=== PATIENT | male | born 1955 | race Hispanic/Latino ===

== ENCOUNTER 2019-08-21 15:52 | Emergency (ER) | payer MEDICAID, OTHER ==
[2019-08-21] MEDS ORDERED: LORAZEPAM 1 MG TABLET ONE (16:19)
== END 2019-08-21 17:30 | disposition home or self-care (01) ==
LOC: EDH 15:52
DX: F41.9 Anxiety disorder, unspecified (principal); F20.9 Schizophrenia, unspecified; F31.9 Bipolar disorder, unspecified; Z72.0 Tobacco use
CPT/HCPCS: 71045; 93005

== ENCOUNTER 2020-07-20 12:14 | Emergency (ER) | payer MEDICARE ==
[2020-07-20] MEDS ORDERED: DEXAMETHASONE SOD PHOSPHATE 4 MG/ML 1ML VIAL ONE (13:33)
[2020-07-20] MEDS ORDERED: KETOROLAC TROMETHAMINE 15MG/ML ONE (13:33)
[2020-07-20] MEDS ORDERED: LIDOCAINE 5% TOPICAL PATCH TP ONE (13:34)
== END 2020-07-20 14:21 | disposition home or self-care (01) ==
LOC: EDH 12:14
DX: M54.30 Sciatica, unspecified side (principal); F20.9 Schizophrenia, unspecified; F31.9 Bipolar disorder, unspecified; F41.9 Anxiety disorder, unspecified; Z90.49 Acquired absence of other specified parts of digestive tract; Z72.0 Tobacco use
CPT/HCPCS: 96372 ×2; 99284; J1100; J1885

== ENCOUNTER 2021-01-16 16:56 | Emergency (ER) | payer MEDICARE ==
[2021-01-16] MEDS ORDERED: SODIUM CHLORIDE 0.9% 1000ML 1,000 ML IV ONE (17:37)
[2021-01-16] MEDS ORDERED: ALPRAZOLAM 0.25 MG TABLET ONE (17:37)
[2021-01-16 17:55] LABS: BASOPHILS % (AUTO) 0.5 % (0.0-5.0); EOSINOPHILS % (AUTO) 2.4 % (0.0-8.0); HEMATOCRIT 40.9 % (42-54); LYMPHOCYTES % (AUTO) 18.3 % (21.0-51.0); MEAN CORPUSCULAR HEMOGLOBIN 29.6 pg (27.0-33.0); MEAN CORPUSCULAR HGB CONC 34.5 g/dL (32.0-36.0); MEAN CORPUSCULAR VOLUME 85.7 fL (79-99); MONOCYTES % (AUTO) 6.6 % (3.0-13.0); NEUTROPHILS % (AUTO) 71.9 % (40.0-77.0); PLATELET COUNT (AUTO) 197 K/uL (130-400); RED BLOOD CELL COUNT(AUTO) 4.77 MIL/uL (4.50-6.20); RED CELL DISTRIBUTION WIDTH 13.3 % (11.0-15.5); WHITE BLOOD COUNT (AUTO) 9.2 K/uL (4.8-10.8)
[2021-01-16 17:56] LABS: APPEARANCE,URINE Clear (CLEAR); BILIRUBIN,URINE Negative (NEGATIVE); COLOR,URINE Yellow (YELLOW); GLUCOSE, URINE (UA) Negative (NEGATIVE); KETONES,URINE Negative (NEGATIVE); LEUKOCYTE ESTERASE ,URINE Negative (NEGATIVE); NITRATE,URINE Negative (NEGATIVE); OCCULT BLOOD,URINE Negative (NEGATIVE); PH,URINE 8.5 (5.0-8.0); PROTEIN,URINE Negative (NEGATIVE); UROBILINOGEN,URINE 0.2 mg/dL (0.2-1.0)
[2021-01-16 18:02] LABS: CREATININE 0.8 mg/dL (0.5-1.5); POTASSIUM 3.6 mmol/L (3.5-5.1)
[2021-01-16 18:07] LABS: ALBUMIN 4.1 g/dL (3.5-5.0); BILIRUBIN,TOTAL 0.8 mg/dL (0.2-1.0); TOTAL PROTEIN, SERUM 7.5 g/dL (6.0-8.3)
== END 2021-01-16 20:00 | disposition home or self-care (01) ==
LOC: EDH 16:56
DX: F41.1 Generalized anxiety disorder (principal); G47.00 Insomnia, unspecified; F32.9 Major depressive disorder, single episode, unspecified; E86.0 Dehydration; F20.9 Schizophrenia, unspecified; Z90.49 Acquired absence of other specified parts of digestive tract
CPT/HCPCS: 36415; 80053; 81003; 85025; 96360; 96361; 99283; J7030

== ENCOUNTER 2021-01-22 12:39 | Emergency (ER) | payer MEDICARE ==
[2021-01-22 13:30] LABS: APPEARANCE,URINE CLEAR (CLEAR); BILIRUBIN,URINE NEGATIVE (NEGATIVE); COLOR,URINE YELLOW (YELLOW); GLUCOSE, URINE (UA) NEGATIVE (NEGATIVE); KETONES,URINE NEGATIVE (NEGATIVE); LEUKOCYTE ESTERASE ,URINE NEGATIVE (NEGATIVE); NITRATE,URINE NEGATIVE (NEGATIVE); OCCULT BLOOD,URINE NEGATIVE (NEGATIVE); PROTEIN,URINE NEGATIVE (NEGATIVE); UROBILINOGEN,URINE 0.2 mg/dL (0.2-1.0)
[2021-01-22 14:06] LABS: BASOPHILS % (AUTO) 0.5 % (0.0-5.0); EOSINOPHILS % (AUTO) 1.2 % (0.0-8.0); HEMATOCRIT 40.4 % (42-54); LYMPHOCYTES % (AUTO) 11.5 % (21.0-51.0); MEAN CORPUSCULAR HGB CONC 33.4 g/dL (32.0-36.0); MEAN CORPUSCULAR VOLUME 86.7 fL (79-99); MONOCYTES % (AUTO) 5.3 % (3.0-13.0); NEUTROPHILS % (AUTO) 81.2 % (40.0-77.0); PLATELET COUNT (AUTO) 277 K/uL (130-400); RED BLOOD CELL COUNT(AUTO) 4.66 MIL/uL (4.50-6.20); RED CELL DISTRIBUTION WIDTH 13.4 % (11.0-15.5); WHITE BLOOD COUNT (AUTO) 13.1 K/uL (4.8-10.8)
[2021-01-22 14:29] LABS: ALBUMIN 3.9 g/dL (3.5-5.0); BILIRUBIN,TOTAL 0.5 mg/dL (0.2-1.0); CREATININE 0.7 mg/dL (0.5-1.5); TOTAL PROTEIN, SERUM 7.2 g/dL (6.0-8.3)
[2021-01-22] MEDS ORDERED: ACETAMINOPHEN EXTRA STRENGTH 500 MG TABLET ONE (17:04)
== END 2021-01-22 18:26 | disposition home or self-care (01) ==
LOC: EDH 12:39
DX: G44.319 Acute post-traumatic headache, not intractable (principal); M25.552 Pain in left hip; F41.9 Anxiety disorder, unspecified; F32.9 Major depressive disorder, single episode, unspecified; F20.9 Schizophrenia, unspecified; Z90.49 Acquired absence of other specified parts of digestive tract; Z88.8 Allergy status to other drugs, medicaments and biological substances; Z98.890 Other specified postprocedural states; W18.39XA Other fall on same level, initial encounter; Y93.89 Activity, other specified; Y92.89 Other specified places as the place of occurrence of the external cause; Y99.8 Other external cause status
CPT/HCPCS: 36415; 70450; 72170; 80053; 81003; 84484; 85025; 93005

== ENCOUNTER 2021-02-21 21:46 | Emergency (ER) | payer MEDICARE ==
[~2021-02-21] VITALS: Ht 172.7 cm; Wt 89.8 kg
[2021-02-21 22:07] VITALS: BP 120/71
[2021-02-21 22:22] LABS: BASOPHILS % (AUTO) 0.7 % (0.0-5.0); EOSINOPHILS % (AUTO) 3.8 % (0.0-8.0); HEMATOCRIT 37.4 % (42-54); LYMPHOCYTES % (AUTO) 11.8 % (21.0-51.0); MEAN CORPUSCULAR HEMOGLOBIN 29.1 pg (27.0-33.0); MEAN CORPUSCULAR HGB CONC 32.6 g/dL (32.0-36.0); MEAN CORPUSCULAR VOLUME 89.3 fL (79-99); MONOCYTES % (AUTO) 8.1 % (3.0-13.0); PLATELET COUNT (AUTO) 215 K/uL (130-400); RED BLOOD CELL COUNT(AUTO) 4.19 MIL/uL (4.50-6.20); RED CELL DISTRIBUTION WIDTH 13.1 % (11.0-15.5); WHITE BLOOD COUNT (AUTO) 10.8 K/uL (4.8-10.8)
[2021-02-21 22:32] LABS: INR 1.02 (0.85-1.15); PROTHROMBIN TIME 11.1 SEC (9.6-11.6)
[2021-02-21 22:33] LABS: CARBON DIOXIDE 25 mmol/L (21-32); CHLORIDE 103 mmol/L (101-111); CREATININE 0.6 mg/dL (0.5-1.5); GLOMERULAR FILTR. RATE CALC 143 mL/min (>60); GLUCOSE,RANDOM 138 mg/dL (70-105); PARTIAL THROMBOPLASTIN TIME 26.5 SEC (26.3-35.5); POTASSIUM 4.5 mmol/L (3.5-5.1); SODIUM SERUM 138 mmol/L (136-145); UREA NITROGEN, BLOOD 21 mg/dL (7-18)
[2021-02-21 22:37] LABS: ALANINE AMINOTRANSFERASE 25 U/L (12-78); ALBUMIN 3.2 g/dL (3.5-5.0); ASPARTATE AMINOTRANSFERASE 24 U/L (10-37); BILIRUBIN,TOTAL 0.3 mg/dL (0.2-1.0); TOTAL PROTEIN, SERUM 5.9 g/dL (6.0-8.3)
[2021-02-21 22:39] LABS: CRP QUANTITATIVE < 2.00 mg/L (0.00-9.0)
[2021-02-22] MEDS ORDERED: CEFTRIAXONE 1G VIAL IVP ONE (00:15)
[2021-02-22 00:51] LABS: APPEARANCE,URINE Clear (CLEAR); BILIRUBIN,URINE Negative (NEGATIVE); COLOR,URINE Yellow (YELLOW); GLUCOSE, URINE (UA) Negative (NEGATIVE); KETONES,URINE Trace mg/dL (NEGATIVE); LEUKOCYTE ESTERASE ,URINE Negative (NEGATIVE); NITRATE,URINE Negative (NEGATIVE); OCCULT BLOOD,URINE Negative (NEGATIVE); PROTEIN,URINE Negative (NEGATIVE)
[2021-02-22] MEDS ORDERED: MORPHINE 4 MG SYG IV ONE (01:30)
[2021-02-22 01:48] VITALS: BP 116/66
[2021-02-22 03:18] LABS: HEMATOCRIT 39.3 % (42-54); MEAN CORPUSCULAR HEMOGLOBIN 29.9 pg (27.0-33.0); MEAN CORPUSCULAR HGB CONC 32.8 g/dL (32.0-36.0); MEAN CORPUSCULAR VOLUME 91.2 fL (79-99); RED BLOOD CELL COUNT(AUTO) 4.31 MIL/uL (4.50-6.20); RED CELL DISTRIBUTION WIDTH 13.2 % (11.0-15.5); WHITE BLOOD COUNT (AUTO) 10.2 K/uL (4.8-10.8)
[2021-02-22 03:26] VITALS: BP 104/67
[2021-02-22] MEDS ORDERED: CEPH500B PO (04:33)
[2021-02-22 04:48] VITALS: BP 121/87
== END 2021-02-22 04:58 | disposition home or self-care (01) ==
LOC: EDH 21:46
DX: S20.462A Insect bite (nonvenomous) of left back wall of thorax, initial encounter (principal); R07.89 Other chest pain; R05 Cough; Z88.8 Allergy status to other drugs, medicaments and biological substances; Z72.0 Tobacco use; W57.XXXA Bitten or stung by nonvenomous insect and other nonvenomous arthropods, initial encounter; Y93.89 Activity, other specified; Y92.89 Other specified places as the place of occurrence of the external cause; Y99.8 Other external cause status
CPT/HCPCS: 36415 ×2; 71045; 80053; 81003; 82550; 83605; 83735; 84484; 85025; 85027; 85610; 85730; 86140; 96374; 96375; 99284; J0696; J2270

== ENCOUNTER 2021-12-09 15:11 | Emergency (ER) | payer OTHER, MEDICARE ==
[~2021-12-09 15:11] MED LIST: CEPH500B PO
[2021-12-09 15:34] LABS: BASOPHILS % (AUTO) 0.6 % (0.0-5.0); EOSINOPHILS % (AUTO) 1.8 % (0.0-8.0); HEMATOCRIT 40.2 % (42-54); LYMPHOCYTES % (AUTO) 13.1 % (21.0-51.0); MEAN CORPUSCULAR HEMOGLOBIN 27.1 pg (27.0-33.0); MEAN CORPUSCULAR HGB CONC 32.8 g/dL (32.0-36.0); MEAN CORPUSCULAR VOLUME 82.5 fL (79-99); MONOCYTES % (AUTO) 5.4 % (3.0-13.0); NEUTROPHILS % (AUTO) 78.8 % (40.0-77.0); PLATELET COUNT (AUTO) 216 K/uL (130-400); RED BLOOD CELL COUNT(AUTO) 4.87 MIL/uL (4.50-6.20); RED CELL DISTRIBUTION WIDTH 14.4 % (11.0-15.5); WHITE BLOOD COUNT (AUTO) 9.3 K/uL (4.8-10.8)
[2021-12-09 15:46] LABS: CREATININE 0.6 mg/dL (0.5-1.5)
[2021-12-09 15:50] LABS: ALBUMIN 3.9 g/dL (3.5-5.0); BILIRUBIN,TOTAL 0.4 mg/dL (0.2-1.0)
[2021-12-09 16:10] LABS: BILIRUBIN,URINE Negative (NEGATIVE); COLOR,URINE Yellow (YELLOW); GLUCOSE, URINE (UA) Negative (NEGATIVE); KETONES,URINE Negative (NEGATIVE); LEUKOCYTE ESTERASE ,URINE Trace (NEGATIVE); NITRATE,URINE Negative (NEGATIVE); OCCULT BLOOD,URINE Negative (NEGATIVE); PH,URINE 6.5 (5.0-8.0); PROTEIN,URINE Negative (NEGATIVE); UROBILINOGEN,URINE 0.2 mg/dL (0.2-1.0)
[2021-12-09 16:14] LABS: APPEARANCE,URINE CLOUDY (CLEAR)
[2021-12-09 16:42] VITALS: BP 105/63
[2021-12-09 17:24] LABS: BACTERIA,URINE Few /HPF (None Seen); RBC,URINE 0-1 /HPF (0-1); SQUAMOUS EPITHELIAL CELL,UR Few /HPF (0-2); WBC,URINE 0-1 /HPF (0-1)
[2021-12-09] MEDS ORDERED: ONDANSETRON ODT 4MG TAB SL ONE (18:00)
[2021-12-09] MEDS ORDERED: CEFTRIAXONE 1G VIAL IM ONE (18:00)
[2021-12-09] MEDS ORDERED: ONDA4TAB10 PO (18:05)
[2021-12-09] MEDS ORDERED: CEPH500B PO (18:05)
== END 2021-12-09 18:25 | disposition home or self-care (01) ==
LOC: EDH 15:11
DX: N39.0 Urinary tract infection, site not specified (principal); K59.00 Constipation, unspecified; E11.9 Type 2 diabetes mellitus without complications; E78.00 Pure hypercholesterolemia, unspecified; I10 Essential (primary) hypertension; Z88.8 Allergy status to other drugs, medicaments and biological substances; Z98.890 Other specified postprocedural states
CPT/HCPCS: 36415; 80053; 81001; 85025; 87486; 87797; 96372; 99283; J0696

== ENCOUNTER 2021-12-14 18:29 | Emergency (ER) | payer OTHER, MEDICARE ==
[~2021-12-14] VITALS: Ht 172.7 cm; Wt 78.0 kg
[~2021-12-14 18:29] MED LIST changes: +ONDA4TAB10 PO
[2021-12-14 18:55] LABS: APPEARANCE,URINE Clear (CLEAR); BILIRUBIN,URINE Negative (NEGATIVE); COLOR,URINE Yellow (YELLOW); GLUCOSE, URINE (UA) Negative (NEGATIVE); KETONES,URINE Negative (NEGATIVE); LEUKOCYTE ESTERASE ,URINE Negative (NEGATIVE); NITRATE,URINE Negative (NEGATIVE); OCCULT BLOOD,URINE Negative (NEGATIVE); PH,URINE 8.5 (5.0-8.0); PROTEIN,URINE Negative (NEGATIVE); UROBILINOGEN,URINE 0.2 mg/dL (0.2-1.0)
[2021-12-14] MEDS ORDERED: PHEN-847 PO (19:03)
[2021-12-14 19:06] VITALS: BP 130/65
[2021-12-14] MEDS ORDERED: PHENAZOPYRIDINE HCL 200 MG TABLET PO ONE (19:30)
== END 2021-12-14 19:12 | disposition home or self-care (01) ==
LOC: EDH 18:29
DX: R30.0 Dysuria (principal); R35.0 Frequency of micturition; Z88.8 Allergy status to other drugs, medicaments and biological substances; Z90.49 Acquired absence of other specified parts of digestive tract; Z79.899 Other long term (current) drug therapy
CPT/HCPCS: 81003

== ENCOUNTER 2021-12-14 19:52 | Emergency (ER) | payer OTHER, MEDICARE ==
[~2021-12-14] VITALS: Ht 172.7 cm; Wt 78.0 kg
[~2021-12-14 19:52] MED LIST changes: +PHEN-847 PO
[2021-12-14 19:54] VITALS: BP 115/72
== END 2021-12-14 21:22 | disposition home or self-care (01) ==
LOC: EDH 19:52
DX: N48.89 Other specified disorders of penis (principal); Z53.21 Procedure and treatment not carried out due to patient leaving prior to being seen by health care provider

== ENCOUNTER 2022-01-20 17:26 | Inpatient (IN) | payer OTHER, MEDICARE ==
[~2022-01-20] VITALS: Ht 172.7 cm; Wt 74.8 kg
[2022-01-20 18:15] LABS: HEMATOCRIT 40.4 % (42-54); MEAN CORPUSCULAR HEMOGLOBIN 28.8 pg (27.0-33.0); MEAN CORPUSCULAR HGB CONC 34.2 g/dL (32.0-36.0); MEAN CORPUSCULAR VOLUME 84.2 fL (79-99); PLATELET COUNT (AUTO) 216 K/uL (130-400); RED CELL DISTRIBUTION WIDTH 14.9 % (11.0-15.5); WHITE BLOOD COUNT (AUTO) 18.6 K/uL (4.8-10.8)
[2022-01-20 18:17] LABS: BASOPHILS % (AUTO) 0.2 % (0.0-5.0); EOSINOPHILS % (AUTO) 0.1 % (0.0-8.0); LYMPHOCYTES % (AUTO) 6.7 % (21.0-51.0); MONOCYTES % (AUTO) 7.2 % (3.0-13.0); NEUTROPHILS % (AUTO) 84.9 % (40.0-77.0)
[2022-01-20 18:35] LABS: ALBUMIN 4.1 g/dL (3.5-5.0); BILIRUBIN,TOTAL 1.4 mg/dL (0.2-1.0); CREATININE 0.8 mg/dL (0.5-1.5); POTASSIUM 4.5 mmol/L (3.5-5.1); TOTAL PROTEIN, SERUM 7.4 g/dL (6.0-8.3)
[2022-01-20 19:14] LABS: APPEARANCE,URINE CLEAR (CLEAR); BILIRUBIN,URINE SMALL (NEGATIVE); COLOR,URINE YELLOW (YELLOW); GLUCOSE, URINE (UA) NEGATIVE (NEGATIVE); KETONES,URINE 15 mg/dL (NEGATIVE); LEUKOCYTE ESTERASE ,URINE NEGATIVE (NEGATIVE); NITRATE,URINE POSITIVE (NEGATIVE); OCCULT BLOOD,URINE TRACE-INTACT (NEGATIVE); PH,URINE 6.5 (5.0-8.0); PROTEIN,URINE TRACE mg/dL (NEGATIVE)
[2022-01-20 19:33] LABS: BACTERIA,URINE Few /HPF (None Seen); RBC,URINE 0-1 /HPF (0-1); SQUAMOUS EPITHELIAL CELL,UR None Seen /HPF (0-2); WBC,URINE 0-1 /HPF (0-1)
[2022-01-20] MEDS ORDERED: IOHEXOL-350 75 ML VIAL IV ONE (20:06)
[2022-01-20] MEDS ORDERED: 0.9%NACL 1000ML 1,000 ML IV ONE (20:30)
[2022-01-20] MEDS ORDERED: DEXAMETHASONE SOD PHOSPHATE 4 MG/ML 1ML VIAL IV ONE (21:30)
[2022-01-20] MEDS ORDERED: ONDANSETRON 4MG INJ IV PRN (22:00)
[2022-01-20] MEDS ORDERED: ACETAMINOPHEN 650 MG SUPPOSITORY RC PRN (22:00)
[2022-01-20] MEDS ORDERED: MORPHINE 4 MG SYG IV PRN (22:00)
[2022-01-20] MEDS: DEXAMETHASONE SOD PHOSPHATE 4 MG/ML 1ML VIAL IVP SCH (22:00)
[2022-01-20] MEDS: RACEPINEPHRINE HCL 2.25% 0.5 ML NEB SOLN NEB SCH (22:15)
[2022-01-20] MEDS: 0.9%NACL 1000ML 1,000 ML IV SCH (22:31)
[2022-01-20] MEDS: ZOSYN 3.375GM +NS 50ML IV SCH (22:31)
[2022-01-20 23:42] VITALS: BP 114/67
[2022-01-21 03:10] VITALS: BP 99/45
[2022-01-21 03:31] LABS: BASOPHILS % (AUTO) 0.2 % (0.0-5.0); HEMATOCRIT 41.3 % (42-54); LYMPHOCYTES % (AUTO) 3.6 % (21.0-51.0); MEAN CORPUSCULAR HEMOGLOBIN 27.8 pg (27.0-33.0); MEAN CORPUSCULAR VOLUME 86.9 fL (79-99); MONOCYTES % (AUTO) 1.8 % (3.0-13.0); NEUTROPHILS % (AUTO) 93.4 % (40.0-77.0); PLATELET COUNT (AUTO) 203 K/uL (130-400); RED BLOOD CELL COUNT(AUTO) 4.75 MIL/uL (4.50-6.20); RED CELL DISTRIBUTION WIDTH 15.2 % (11.0-15.5)
[2022-01-21 03:46] LABS: INR 0.94 (0.85-1.15); PROTHROMBIN TIME 10.3 SEC (9.6-11.6)
[2022-01-21 03:47] LABS: PARTIAL THROMBOPLASTIN TIME 30.2 SEC (26.3-35.5)
[2022-01-21 03:52] LABS: CREATININE 0.6 mg/dL (0.5-1.5); PHOSPHORUS 4.1 mg/dL (2.5-4.9)
[2022-01-21] MEDS: ZOSYN 3.375GM+NS 50ML 50 ML IV SCH ×3 (05:50→20:25)
[2022-01-21] MEDS: RACEPINEPHRINE HCL 2.25% 0.5 ML NEB SOLN NEB SCH ×3 (06:34→22:10)
[2022-01-21 08:02] VITALS: BP 104/53
[2022-01-21] MEDS: FAMOTIDINE 20MG VIAL IV SCH (08:20)
[2022-01-21] MEDS: DEXAMETHASONE SOD PHOSPHATE 4 MG/ML 1ML VIAL IVP SCH ×2 (08:21→20:26)
[2022-01-21] MEDS: MORPHINE 2 MG SYG IV PRN (10:51)
[2022-01-21 11:45] VITALS: BP 121/68
[2022-01-21 15:06] LABS: ALBUMIN 3.6 g/dL (3.5-5.0); BILIRUBIN,DIRECT 0.2 mg/dL (0.0-0.3); BILIRUBIN,TOTAL 0.7 mg/dL (0.2-1.0); TOTAL PROTEIN, SERUM 6.7 g/dL (6.0-8.3)
[2022-01-21 16:01] VITALS: BP 110/58
[2022-01-21] MEDS: 0.9%NACL 1000ML 1,000 ML IV SCH (18:00)
[2022-01-21 19:14] VITALS: BP 137/70
[2022-01-21] MEDS: ZOSYN 3.375GM +NS 50ML IV SCH (20:09)
[2022-01-21 23:06] VITALS: BP 119/70
[2022-01-22 00:33] LABS: HEPATITIS B SURFACE ANTIGEN Non-Reactive (Negative)
[2022-01-22 00:34] LABS: HEPATITIS A IGM ANTIBODY Non-Reactive (Negative); HEPATITIS B CORE IGM ANTIBODY Non-Reactive (Negative); HEPATITIS C ANTIBODY Non-Reactive (NEGATIVE)
[2022-01-22] MEDS: 0.9%NACL 1000ML 1,000 ML IV SCH ×2 (00:40→15:33)
[2022-01-22 03:17] VITALS: BP 92/50
[2022-01-22 04:59] LABS: HEMATOCRIT 39.5 % (42-54); MEAN CORPUSCULAR HEMOGLOBIN 28.6 pg (27.0-33.0); MEAN CORPUSCULAR HGB CONC 32.4 g/dL (32.0-36.0); MEAN CORPUSCULAR VOLUME 88.4 fL (79-99); RED BLOOD CELL COUNT(AUTO) 4.47 MIL/uL (4.50-6.20); RED CELL DISTRIBUTION WIDTH 15.6 % (11.0-15.5); WHITE BLOOD COUNT (AUTO) 9.2 K/uL (4.8-10.8)
[2022-01-22] MEDS ORDERED: 0.9%NACL 50ML 50 ML IV ONE ×2 (05:07→19:42)
[2022-01-22] MEDS: ZOSYN 3.375GM+NS 50ML 50 ML IV SCH ×2 (05:08→15:32)
[2022-01-22 05:27] LABS: ALBUMIN 3.4 g/dL (3.5-5.0); BILIRUBIN,DIRECT 0.1 mg/dL (0.0-0.3); BILIRUBIN,TOTAL 0.6 mg/dL (0.2-1.0); CREATININE 0.6 mg/dL (0.5-1.5); MAGNESIUM 1.9 mg/dL (1.80-2.40); POTASSIUM 4.1 mmol/L (3.5-5.1); TOTAL PROTEIN, SERUM 6.5 g/dL (6.0-8.3)
[2022-01-22] MEDS: RACEPINEPHRINE HCL 2.25% 0.5 ML NEB SOLN NEB SCH (06:25)
[2022-01-22 07:00] VITALS: BP 117/70
[2022-01-22] MEDS: FAMOTIDINE 20MG VIAL IV SCH (10:38)
[2022-01-22] MEDS: DEXAMETHASONE SOD PHOSPHATE 4 MG/ML 1ML VIAL IVP SCH ×2 (10:38→21:42)
[2022-01-22 11:00] VITALS: BP_SYST 119; BP_SYST 135; BP_DIAS 64; BP_DIAS 93
[2022-01-22] MEDS ORDERED: LACTULOSE 20 GM/30 ML UDCUP PO PRN (11:00)
[2022-01-22] MEDS ORDERED: PHENAZOPYRIDINE HCL 200 MG TABLET PO PRN (11:00)
[2022-01-22] MEDS ORDERED: VANCOMYCIN PROTOCOL PER PHARMACY IV PRN (11:00)
[2022-01-22] MEDS ORDERED: TAMSULOSIN HCL 0.4 MG CAP.ER.24H PO SCH (11:00)
[2022-01-22] MEDS: ALPRAZOLAM 0.25 MG TABLET PO PRN ×2 (11:20→22:53)
[2022-01-22] MEDS ORDERED: VANCOMYCIN 1.75 GM/250 ML BAG 250 ML IV SCH (11:30)
[2022-01-22 15:00] VITALS: BP 115/65
[2022-01-22] MEDS ORDERED: IOHEXOL-350 75 ML VIAL IV ONE (15:16)
[2022-01-22 19:33] VITALS: BP 92/62
[2022-01-22] MEDS: MIRTAZAPINE 15 MG TABLET PO SCH (19:44)
[2022-01-23] VITALS (9 sets, daily range): BP systolic 92–147; BP diastolic 56–80
[2022-01-23] MEDS: ZOSYN 3.375GM+NS 50ML 50 ML IV SCH ×4 (00:51→22:47)
[2022-01-23 04:18] LABS: HEMATOCRIT 38.8 % (42-54); MEAN CORPUSCULAR HEMOGLOBIN 27.9 pg (27.0-33.0); MEAN CORPUSCULAR HGB CONC 32.2 g/dL (32.0-36.0); MEAN CORPUSCULAR VOLUME 86.6 fL (79-99); RED BLOOD CELL COUNT(AUTO) 4.48 MIL/uL (4.50-6.20); RED CELL DISTRIBUTION WIDTH 15.4 % (11.0-15.5)
[2022-01-23 04:25] LABS: CREATININE 0.6 mg/dL (0.5-1.5); POTASSIUM 4.1 mmol/L (3.5-5.1)
[2022-01-23] MEDS ORDERED: VANCOMYCIN 1G/250ML KIT 250 ML IV SCH (06:00)
[2022-01-23] MEDS ORDERED: 0.9% NACL 250ML 250 ML ONE ×2 (06:17→20:46)
[2022-01-23 09:01] LABS: RETICULOCYTE % (AUTO) 1.94 % (0.42-2.23)
[2022-01-23] MEDS: PAROXETINE HCL 20 MG TABLET PO SCH (09:54)
[2022-01-23] MEDS: FAMOTIDINE 20MG VIAL IV SCH (09:54)
[2022-01-23] MEDS: VANCOMYCIN 1G/250ML KIT 250 ML IV SCH ×2 (09:55→20:49)
[2022-01-23] MEDS: DEXAMETHASONE 4 MG TAB PO SCH (10:01)
[2022-01-23 10:08] LABS: % IRON SATURATION 24.8 % (30-44)
[2022-01-23] MEDS: MORPHINE 2 MG SYG IV PRN (14:39)
[2022-01-23] MEDS: MIRTAZAPINE 15 MG TABLET PO SCH (20:48)
[2022-01-23] MEDS ORDERED: TAMSULOSIN HCL 0.4 MG CAP.ER.24H PO SCH (21:00)
[2022-01-23] MEDS: ALPRAZOLAM 0.25 MG TABLET PO PRN (22:57)
[2022-01-24 00:16] VITALS: BP 124/71
[2022-01-24 04:16] LABS: BASOPHILS % (AUTO) 0.2 % (0.0-5.0); EOSINOPHILS % (AUTO) 0.2 % (0.0-8.0); HEMATOCRIT 39.1 % (42-54); MEAN CORPUSCULAR HEMOGLOBIN 28.1 pg (27.0-33.0); MEAN CORPUSCULAR HGB CONC 32.2 g/dL (32.0-36.0); MEAN CORPUSCULAR VOLUME 87.3 fL (79-99); MONOCYTES % (AUTO) 9.2 % (3.0-13.0); NEUTROPHILS % (AUTO) 66.2 % (40.0-77.0); PLATELET COUNT (AUTO) 265 K/uL (130-400); RED BLOOD CELL COUNT(AUTO) 4.48 MIL/uL (4.50-6.20); RED CELL DISTRIBUTION WIDTH 15.4 % (11.0-15.5); WHITE BLOOD COUNT (AUTO) 10.3 K/uL (4.8-10.8)
[2022-01-24] MEDS: ZOSYN 3.375GM+NS 50ML 50 ML IV SCH ×2 (04:21→13:00)
[2022-01-24] MEDS: MORPHINE 2 MG SYG IV PRN (04:21)
[2022-01-24 04:25] VITALS: BP 97/62
[2022-01-24 04:37] LABS: ALBUMIN 3.3 g/dL (3.5-5.0); BILIRUBIN,TOTAL 0.3 mg/dL (0.2-1.0); CREATININE 0.6 mg/dL (0.5-1.5); TOTAL PROTEIN, SERUM 6.4 g/dL (6.0-8.3)
[2022-01-24 05:58] VITALS: BP 112/75
[2022-01-24 08:00] VITALS: BP 122/69
[2022-01-24] MEDS ORDERED: 0.9% NACL 250ML 250 ML ONE (08:49)
[2022-01-24] MEDS: FAMOTIDINE 20MG VIAL IV SCH (09:10)
[2022-01-24] MEDS: VANCOMYCIN 1G/250ML KIT 250 ML IV SCH (09:11)
[2022-01-24] MEDS: DEXAMETHASONE 4 MG TAB PO SCH (09:12)
[2022-01-24] MEDS: PAROXETINE HCL 20 MG TABLET PO SCH (09:12)
[2022-01-24 12:00] VITALS: BP 155/79
[2022-01-25] MEDS ORDERED: DEXAMETHASONE 4 MG TAB PO SCH (09:00)
== END 2022-01-24 12:45 | DRG 155 ==
LOC: EDH 17:26 → EDHIP 21:35 → 2DH 23:32 → 4DH 01-22 20:40
PROVIDERS: ADMIT Internal Medicine; ATTEND Internal Medicine
DX: J39.2 Other diseases of pharynx (principal); E87.1 Hypo-osmolality and hyponatremia; R45.851 Suicidal ideations; N39.0 Urinary tract infection, site not specified; J38.4 Edema of larynx; J38.6 Stenosis of larynx; D72.829 Elevated white blood cell count, unspecified; B96.89 Other specified bacterial agents as the cause of diseases classified elsewhere; F31.9 Bipolar disorder, unspecified; Z20.822 Contact with and (suspected) exposure to COVID-19; F43.22 Adjustment disorder with anxiety; M17.10 Unilateral primary osteoarthritis, unspecified knee; M79.7 Fibromyalgia; Z90.49 Acquired absence of other specified parts of digestive tract
CPT/HCPCS: 36415; 70491; 71045; 76705; 80048; 80053; 80074; 80076; 80202; 81001; 82607; 82728; 82746; 82977; 83540; 83550; 83605; 83735; 83930; 84100; 84145; 84484; 85025; 85027; 85045; 85610; 85730; 86850; 86900; 86901; 87040; 87088; 87635; 93005; 94640; 94664; 97039; G0378; J1100; J2270; J2543; J3370; J3490; J7050; J8540; Q9967

== ENCOUNTER 2022-05-16 15:11 | Emergency (ER) | payer OTHER, MEDICARE ==
[~2022-05-16] VITALS: Ht 172.7 cm; Wt 70.3 kg
[~2022-05-16 15:11] MED LIST changes: -CEPH500B PO; -ONDA4TAB10 PO
[2022-05-16 15:35] LABS: BASOPHILS % (AUTO) 0.7 % (0.0-5.0); EOSINOPHILS % (AUTO) 3.4 % (0.0-8.0); HEMATOCRIT 33.5 % (42-54); MEAN CORPUSCULAR HEMOGLOBIN 27.9 pg (27.0-33.0); MEAN CORPUSCULAR HGB CONC 31.9 g/dL (32.0-36.0); MEAN CORPUSCULAR VOLUME 87.2 fL (79-99); MONOCYTES % (AUTO) 5.5 % (3.0-13.0); NEUTROPHILS % (AUTO) 66.2 % (40.0-77.0); PLATELET COUNT (AUTO) 257 K/uL (130-400); RED BLOOD CELL COUNT(AUTO) 3.84 MIL/uL (4.50-6.20); RED CELL DISTRIBUTION WIDTH 12.9 % (11.0-15.5); WHITE BLOOD COUNT (AUTO) 7.7 K/uL (4.8-10.8)
[2022-05-16 15:51] LABS: CREATININE 0.6 mg/dL (0.5-1.5); POTASSIUM 3.3 mmol/L (3.5-5.1)
[2022-05-16 15:54] LABS: APPEARANCE,URINE CLEAR (CLEAR); BILIRUBIN,URINE NEGATIVE (NEGATIVE); COLOR,URINE YELLOW (YELLOW); GLUCOSE, URINE (UA) NEGATIVE (NEGATIVE); KETONES,URINE NEGATIVE (NEGATIVE); LEUKOCYTE ESTERASE ,URINE NEGATIVE (NEGATIVE); NITRATE,URINE NEGATIVE (NEGATIVE); OCCULT BLOOD,URINE NEGATIVE (NEGATIVE); PROTEIN,URINE NEGATIVE (NEGATIVE); UROBILINOGEN,URINE 0.2 mg/dL (0.2-1.0)
[2022-05-16 15:57] LABS: ALBUMIN 3.2 g/dL (3.5-5.0); TOTAL PROTEIN, SERUM 6.3 g/dL (6.0-8.3)
[2022-05-16 16:21] LABS: B-TYPE NATRIURETIC PEPTIDE 137 pg/mL (0-100)
[2022-05-16 17:12] VITALS: BP 123/64
[2022-05-16] MEDS ORDERED: POTASSIUM BICARB/CIT AC 25 MEQ TABLET.EFF ONE (17:25)
[2022-05-16] MEDS ORDERED: POTASSIUM BICARB/CIT AC 25 MEQ TABLET.EFF PO ONE (17:30)
== END 2022-05-16 17:36 | disposition home or self-care (01) ==
LOC: EDH 15:11
DX: M79.89 Other specified soft tissue disorders (principal); F41.9 Anxiety disorder, unspecified; F32.A Depression, unspecified; F20.9 Schizophrenia, unspecified; Z88.8 Allergy status to other drugs, medicaments and biological substances; Z79.899 Other long term (current) drug therapy; Z98.890 Other specified postprocedural states
CPT/HCPCS: 36415; 71045; 80053; 81003; 83880; 84484; 85025

== ENCOUNTER 2023-02-05 13:47 | Emergency (ER) | payer MEDICARE ==
[~2023-02-05] VITALS: Ht 172.7 cm; Wt 78.5 kg
[~2023-02-05 13:47] MED LIST changes: +ACET1TAB97 PO; +ALBU2.5V2 NEB; +BUSP7.5T7 PO; +FURO20TA4 PO; +IBUP-2077 PO; -PHEN-847 PO; +TAMS-1 PO; +TRAZ300T2 PO
[2023-02-05 14:01] VITALS: BP 140/80
== END 2023-02-05 15:12 | disposition home or self-care (01) ==
LOC: EDH 13:47
DX: M79.605 Pain in left leg (principal); Z53.21 Procedure and treatment not carried out due to patient leaving prior to being seen by health care provider
CPT/HCPCS: 99281